=== PATIENT | male | born 2000 | race Caucasian/White ===

== ENCOUNTER 2024-11-07 04:20 | Emergency (ER) | payer OTHER, SELFPAY ==
[2024-11-07 04:31] VITALS: BP 148/94; PULSE 88; RESP 18; TEMP 36.8; O2SAT 100; BMI 23.6
--- NOTE | 2024-11-07 04:59 | ED_ITS ---
HPI - Male Genitourinary General Chief complaint: Urogenital-Male Stated complaint: Poss Testicular Torsion Time Seen by Provider: 11/07/24 04:59 Source: patient, RN notes reviewed and old records reviewed Mode of arrival: Ambulatory Limitations: no limitations History of Present Illness HPI Narrative: 23-year-old male no reported medical issues who presents with complaint of right testicular pain that started in the last day. Patient denies any fevers. He was a little nausea but no vomiting. States he was a little bit of suprapubic discomfort. Denies any back or flank pain. Patient states discomfort is on the right side he does not have any tenderness on the left. He notes little bit of swelling in the right as well. Patient has not noticed any warmth or redness. Denies any dysuria urgency or frequency. Patient states low suspicion for STI. Review of Systems Review of Systems ROS Unobtainable: All systems reviewed & are unremarkable except as noted in HPI and below Patient History Social History Smoking Status: Never smoker Smoking Status: Never smoker Exam Narrative Exam Narrative: GENERAL: Alert and oriented x three, male in mild distress HEENT: Head normocephalic, atraumatic, EOMI, pupils reactive, face symmetric, moist mucous membranes NECK: Supple, full range of motion CARDIOVASCULAR: Regular rate and rhythm without murmurs, rubs or gallops. RESPIRATORY: Breath sounds equal bilaterally, no wheezes rales or rhonchi. ABDOMEN: Soft, nontender. Normoactive bowel sounds all 4 quadrants. No guarding or rebound, rigidity, no mass : No CVA tenderness, Male: normal external examination, no penile discharge or lesions, right testicle slightly enlarged compared to left, testicles non- tender, cremasteric reflex intact bilaterally, no inguinal hernias noted. Editorial Director RN Olivia. EXTREMITIES: Normal range of motion, no clubbing or edema. Neurovascularly intact NEUROLOGICAL: Cranial nerves II through XII grossly intact. Moving all extremities SKIN: Warm, dry, no petechiae, no rashes or lesions. Initial Vital Signs Initial Vital Signs: Vital Signs Temperature 98.2 F 11/07/24 04:31 Pulse Rate 88 11/07/24 04:31 Respiratory Rate 18 11/07/24 04:31 Blood Pressure 148/94 H 11/07/24 04:31 Pulse Oximetry 100 11/07/24 04:31 Oxygen Delivery Method Room Air 11/07/24 04:31 Course Orders Ordered: ED Orders 11/07/24 04:36 Urine Microscopic Stat 11/07/24 05:08 US scrotum Stat Vital Signs Vital signs: Vital Signs - 8 hr 11/07/24 04:31 Temperature 98.2 F Pulse Rate 88 Respiratory Rate 18 Blood Pressure 148/94 H Pulse Oximetry 100 Oxygen Delivery Method Room Air MDM - Male Genitourinary Lab Data Labs: Lab Results 11/07/24 Range/Units 04:36 Urine RBC None seen (0-5/HPF) Urine WBC None seen (0-5/HPF) Ur Squamous Epith Cells None seen (0-5/HPF) Urine Bacteria None seen (None) Ur Culture Indicated? Cult not indicated Vol Urine Centrifuged 10ml (spun) Urine Dip Bedside Urine Glucose Negative Bedside Urine Bilirubin - Negative Bedside Urine Ketone - Negative Urine Specific [place] 1.010 Bedside Urine Occult Blood - Negative Bedside Urine pH 6.5 Bedside Urine Protein - Negative Bedside Urine Urobilinogen - Negative Bedside Urine Nitrite - Negative Bedside Urine Leukocytes - Negative Esterase MDM Narrative Medical decision making narrative: Point of care urine is negative, urine microscopy is negative. Testicular ultrasound shows normal scrotal ultrasound, no evidence of torsion, trace right hydrocele. Night rad read shows right testicle normal echotexture 4.9 x 2.3 x 2.1 cm, left testicle normal echotexture 4.5 x 2.6 x 2.6 cm. Normal color flow and arterial/venous spectral tracing in both testicles. Epididymitis are unremarkable. No varicoceles trace right hydrocele. Reviewed findings with the patient patient is to follow up with Urology if persistent or worsening symptoms. Discussed return precautions. Discharge Plan Departure Patient Disposition: Home Clinical Impression: Hydrocele, right Instructions: DI for Hydrocele-Adult Activity Restrictions/Additional Instructions: Follow up for recheck, your ultrasound today shows trace right hydrocele. These typically do not require any treatment but if they persist or become very large you can follow up with Urology. You can take acetaminophen up to a 1000 mg every 6 hours and/or ibuprofen up to 600 mg every 6 hours as needed for pain. Please return for fevers, rapidly worsening swelling, new redness or changes to the skin, increasing pain, painful urination, difficulty with urination, new abd ominal back or flank pain, persistent vomiting or other new or concerning changes. Referrals: Pedro Haney DO [Physician, Urology] Stand Alone Forms: Patient Portal/API/Survey
--- NOTE | 2024-11-07 05:08 | DI.US.S_ITS ---
PROCEDURE: US SCROTUM INDICATIONS: R testicular pain TECHNIQUE: Real-time scanning was performed of the scrotum and testicles, with image documentation. Color and pulse Doppler interrogation was performed of both testicles. COMPARISON: None. FINDINGS: Right: Testicle is normal in size at 4.9 x 2.3 x 3.1 cm, and homogenous in echotexture. Epididymis is normal in overall size and morphology. There is a small right-sided hydrocele. No varicoceles. Overlying scrotal skin is normal in thickness. Left: Testicle is normal in size at 4.5 x 2.6 x 2.6 cm, and homogeneous in echotexture. Epididymis is normal in overall size and morphology. No hydrocele or varicoceles. Overlying scrotal skin is normal in thickness. Doppler: Color and pulse Doppler demonstrate normal and symmetric arterial flow in both testicles. IMPRESSION: Normal appearing testicles, without masses or abnormal vascularity. Small right-sided hydrocele present. Note: No significant discrepancy from the preliminary report. Dictated by: Kieran Pedraza M.D. on 11/07/2024 at 10:16 Approved by: Kieran Pedraza M.D. on 11/07/2024 at 10:17
[2024-11-07 05:26] LABS: Bacteria Urine None Seen; Culture Indicated Urine Cult Not Indicated; RBC Urine None Seen (0-5/HPF); Squamous Epithelial Cell Urine None Seen (0-5/HPF); Urine Volume 10mL (spun); WBC Urine None Seen (0-5/HPF)
[2024-11-07 06:43] VITALS: BP 148/94; PULSE 76; RESP 14; O2SAT 100
== END 2024-11-07 06:39 | disposition home or self-care (01) ==
PROVIDERS: Emergency Provider Emergency Medicine
DX: N43.3 Hydrocele, unspecified (principal)
CPT/HCPCS: 76870; 81003; 81015; 93975; 99281; 99283